=== PATIENT | female | born 1975 ===

== ENCOUNTER 2019-10-31 07:30 | Emergency (ER) | payer OTHER ==
[~2019-10-31] VITALS: Ht 157.5 cm; Wt 119.3 kg
[2019-10-31] MEDS ORDERED: HYZAAR 100-251 EACH PO (08:07)
[2019-10-31] MEDS ORDERED: DICY20TA PO (08:08)
[2019-10-31] MEDS ORDERED: LEVSIN0.125 MG PO (08:09)
== END 2019-10-31 12:58 | disposition home or self-care (01) ==
LOC: ER 07:30
DX: K81.1 Chronic cholecystitis (principal); R10.11 Right upper quadrant pain

== ENCOUNTER 2019-11-08 06:00 | Day surgery (SDC) | payer OTHER ==
[~2019-11-08 06:00] MED LIST: DICY20TA PO; HYZAAR 100-251 EACH PO; LEVSIN0.125 MG PO
== END 2019-11-08 15:40 | disposition home or self-care (01) ==
LOC: CIR.AMB 06:00
DX: K80.10 Calculus of gallbladder with chronic cholecystitis without obstruction (principal)